=== PATIENT | female | born 1985 | race Caucasian/White ===

== ENCOUNTER 2025-01-16 13:34 | Observation (INO) ==
[2025-01-16] MEDS: SODIUM CHLORIDE 0.9% 1,000 ML IV STA (13:56)
--- NOTE | 2025-01-16 14:04 | Emergency Department Note ---
Impression & Plan Vertigo Admission ED Provider Note HPI: History obtained from patient. The patient is a 39-year-old female with multiple chronic issues including mastoid disorder, chronic vertigo, TMJ syndrome, migraine headaches, presents emergency department with a chief complaint of right-sided headache and dizziness. Patient states that her symptoms acutely worsen when she lies flat and she has had trouble lying flat for about the past 2 years. Patient states she actually had an MRI of the cervical spine scheduled for today but she was unable to go to the appointment as an outpatient because she was feeling so sick when she laid flat. Patient states that she is on steroids, meclizine, and Versed for vertigo without relief of her symptoms. Patient states she has never had symptoms quite this severe in the past. She describes her discomfort on the right side of her head as a "pressure" and states it is not so much of a pain. Patient states she gets most of her care through [facility] however today when she was mentioning her symptoms to family they brought her to [facility] to be evaluated. Patient denies any recent fever, denies any vomiting, on arrival here to the ED the patient is very anxious and tearful in appearance, she is otherwise hemodynamically stable on arrival. ROS: - Per HPI Differential Diagnosis: Vertigo, migraine complex, anxiety attack, intracranial mass/tumor, intracranial hemorrhage, stroke, demyelinating disease, amongst other potential pathologies. *Outpatient medications and allergy history reviewed. PE: General: Alert, anxious and tearful HEENT: Normocephalic, trachea midline Eyes: Extraocular eye movement is intact, no scleral erythema Pulmonary: Clear to auscultation bilaterally, no wheezing Cardio: Regular rate and rhythm GI: Abdomen is soft to palpation : No suprapubic tenderness MSK: No evidence of trauma or malformation of the extremities, no edema Skin: No evidence of rash Neuro: Alert, no focal deficits, no ataxia on [id number] testing, patient has symmetrical facial movements Psychiatric: Anxious appearing, overall cooperative with history and exam INDEPENDENT INTERPRETATIONS: school lunch monitor: (As interpreted by myself): - An order was placed for continuous cardiac monitoring - Patient was noted to be in sinus rhythm with a rate of 85 EKG: (As interpreted by myself): Rate: 86 Rhythm: Normal sinus rhythm Intervals: Within normal limits ST changes: No ST elevation Time: 1350 Chest x-ray: (As interpreted by myself): No acute disease Interventions provided in ED: - IV Versed, meclizine, IV Tylenol, IV Zofran, IV fluid bolus Medical Decision Making: IV was established and lab work obtained, patient was placed on potline monitor. Lab work shows a leukocytosis of 23.32, hemoglobin is stable at 11.2, platelet count is elevated at 588, D-dimer was obtained that is elevated at 630, CMP does not show any evidence of any critical findings. Mild hypokalemia at 3.0 which was ordered for oral repletion. Troponin is negative, there is no transaminitis, bilirubin is normal, magnesium is normal, procalcitonin is low suggesting against systemic bacterial illness. Urinalysis shows some hematuria without evidence of any obvious infection. CT imaging of the head and neck with angiography were obtained and there is no evidence of any acute intracranial hemorrhage, mass, or stroke. CT angiography of the chest was also obtained given the patient's elevated D-dimer as she also mention several presyncopal events, this does not show any evidence of PE. On my reassessment the patient states despite receiving multiple medications here in the ED she remains symptomatic. She is very anxious and tearful and states she does not feel well for discharge. She states that she can only take several steps before feeling too dizzy and lightheaded to ambulate further. Patient states that previously she has been worked up for similar symptoms in the past at [facility] and was told she had "crystals in the inner ear". I suspect that given her unremarkable imaging today her symptoms are likely vertigo. Her significant leukocytosis is likely related to her outpatient steroid use as she states she is on day 6 of a steroid taper of prednisone. She has not had any recent fever and her procalcitonin is low, I have low suspicion for an acute infection causing meningitis or encephalitis. Given the patient's intractable symptoms, I think would be reasonable to admit her for further symptomatic management, family at the bedside requests admission as well. Case was discussed with the on-call hospitalist, Dr. Van, the patient was admitted to the hospitalist service for further management of intractable vertigo symptoms nonspecific head pressure. Consultants/Discussions held with other healthcare providers: -Hospitalist, Dr. Van Disposition discussion held by myself with: -Patient and patient's stepdaughter at the bedside Diagnosis: 1. Nonspecific head discomfort/pressure, acute on chronic 2. Vertigo symptoms, acute on chronic, intractable 3. Leukocytosis in the setting of outpatient steroid use, acute 4. Hypokalemia, acute Disposition: Admission Carmelo Laws DO Emergency Medicine Past Med/Surg History Problem List (Updated 01/16/25 @ 20:33 by Carmelo Laws DO) Vertigo (Acute) Mastoid disorder Decreased hearing Sensation of fullness in right ear Right shoulder pain Right arm weakness Cervical dystonia Cervical facet joint syndrome Cervicogenic headache Headache Cervical radiculopathy Cervicalgia Myofascial neck pain Migraine Vertigo Surgical History H/O sinus surgery H/O section Social History Smoking Status: Former smoker Hx Alcohol Use: No Hx Substance Use: No Preferred Language: Mongolian Visual Impairment: No Limitations Hearing Ability: Normal Beliefs That Will Affect Care: None marital status: Single Current Living Situation: Family Current Living Situation Comment: lives with her children current occupational status: employed current occupation: Cost Specialist/loan assistant Feels Safe at Home: Yes Allergies Allergies Allergy/AdvReac Type Severity Reaction Status Date / Time No Known Drug Allergies Allergy Unknown Verified 01/16/25 17:42 codeine AdvReac Severe Vomiting Unverified 01/16/25 17:42 morphine AdvReac Severe Vomiting Unverified 01/16/25 17:42 Home Meds Home Medications Medication Instructions Recorded Confirmed acetaminophen 500 mg tablet 500 mg PO Q6H PRN Pain 01/16/25 01/16/25 diazepam 2 mg tablet 2 mg PO DAILY 01/16/25 01/16/25 ibuprofen 200 mg tablet (Advil) 200 mg PO Q6H PRN Pain 01/16/25 01/16/25 prednisone 20 mg tablet See Rx Instructions .Route .COMPLEX 01/16/25 01/16/25 Results & Data (ED) Vital Signs Vital Signs - 24 hr 01/16/25 13:34 01/16/25 13:34 01/16/25 13:37 Temperature 36.7 C Temperature Source Temporal Artery Scan Pulse Rate 105 H Pulse Rate [Right Brachial] 90 Pulse Rhythm [Right Brachial] Pulse Strength [Right Brachial] Respiratory Rate 16 20 Respiratory Effort / Characteristics Non-Labored Non-Labored Spontaneous Respiratory Depth Normal Normal Respiratory Pattern Regular Blood Pressure 149/74 H Blood Pressure [Right Arm] 149/84 H Blood Pressure Mean 99 Blood Pressure Mean [Right Arm] 105 Blood Pressure Position [Right Arm] Lying Pulse Oximetry 98 95 99 Oxygen Delivery Method Room Air Room Air Room Air Sepsis New/Unexplained Change in Mental Status N/A Sepsis Action Taken by Nursing No Action Required 01/16/25 14:10 01/16/25 15:34 01/16/25 17:00 Temperature Temperature Source Pulse Rate 93 H Pulse Rate [Right Brachial] 90 77 Pulse Rhythm [Right Brachial] Regular Regular Pulse Strength [Right Brachial] Normal Normal Respiratory Rate 16 16 Respiratory Effort / Characteristics Non-Labored Non-Labored Respiratory Depth Normal Normal Respiratory Pattern Regular Regular Blood Pressure Blood Pressure [Right Arm] 141/75 H 162/89 H Blood Pressure Mean Blood Pressure Mean [Right Arm] 97 113 Blood Pressure Position [Right Arm] Lying Lying Pulse Oximetry 99 94 Oxygen Delivery Method Room Air Room Air Sepsis New/Unexplained Change in Mental Status Sepsis Action Taken by Nursing 01/16/25 18:13 01/16/25 19:15 01/16/25 20:00 Temperature Temperature Source Pulse Rate 79 Pulse Rate [Right Brachial] 80 84 Pulse Rhythm [Right Brachial] Pulse Strength [Right Brachial] Respiratory Rate 20 16 Respiratory Effort / Characteristics Non-Labored Spontaneous Non-Labored Spontaneous Respiratory Depth Respiratory Pattern Regular Regular Blood Pressure Blood Pressure [Right Arm] 165/78 H 135/86 Blood Pressure Mean Blood Pressure Mean [Right Arm] 107 102 Blood Pressure Position [Right Arm] Lying Lying Pulse Oximetry 98 96 Oxygen Delivery Method Room Air Room Air Sepsis New/Unexplained Change in Mental Status Sepsis Action Taken by Nursing Laboratory Data 01/16/25 13:50 01/16/25 13:50 Lab Results 01/16/25 01/16/25 01/16/25 Range/Units 13:50 14:56 19:15 WBC 23.32 H (4.8-10.8) K/ul RBC 5.95 H (4.20-5.40) M/uL Hgb 11.2 L (12.0-16.0) g/dl Hct 39.2 (37.0-47.0) % MCV 65.9 L (80.0-100.0) fL MCH 18.8 L (25.0-34.0) pg MCHC 28.6 L (32.0-36.0) g/dL RDW Std Deviation 43.4 (36.4-46.3) fL RDW Coeff of Sarthak 20.2 H (11.5-14.5) % Plt Count 588 H (130-400) K/uL MPV 9.1 L (9.4-12.4) fL Immature Gran % (Auto) 0.6 % Neut % (Auto) 73.4 % Lymph % (Auto) 19.7 % [place] % (Auto) 6.0 % Eos % (Auto) 0.0 % Baso % (Auto) 0.3 % Neut # (Auto) 17.09 H (1.40-6.50) K/uL Lymph # (Auto) 4.60 H (1.20-3.40) K/uL [place] # (Auto) 1.40 H (0.11-0.59) K/uL Eos # (Auto) 0.00 (0.00-0.50) K/uL Baso # (Auto) 0.08 (0.00-0.20) K/uL Immature Gran # (Auto) 0.15 (0.01-0.20) K/uL Polychromasia 1+ Anisocytosis Present Microcytosis Present Spherocytes 1+ PT 10.7 (9.0-12.0) Seconds INR 1.0 (0.9-1.1) D-Dimer 630 H* (0-500) ug/L FEU Sodium 137 (136-145) mmol/L Potassium 3.0 L (3.5-5.1) mmol/L Chloride 100 (98-107) mmol/L Carbon Dioxide 26 (21-32) mmol/L Anion Gap 11 (3-11) BUN 15 (6-23) mg/dl Creatinine 0.76 (0.6-1.2) mg/dl Est Cr Clr Drug Dosing 124.1 ml/min eGFR 100.89 BUN/Creatinine Ratio 19.7 (10-20) Glucose 123 H (70-99(Fasting)) mg/dl Calcium 9.1 (8.6-10.3) mg/dl Magnesium 2.2 (1.7-2.4) mg/dl Total Bilirubin 0.5 (0.2-1.0) mg/dl AST 15 (13-39) U/L ALT 20 (7-52) U/L Alkaline Phosphatase 67 (34-104) U/L Troponin I High Sens 4.5 5.6 (0-14) pg/ml Total Protein 7.9 (6.0-8.3) gm/dl Albumin 4.3 (3.4-5.0) gm/dl Globulin 3.6 (2.5-4.0) gm/dl Albumin/Globulin Ratio 1.2 (0.9-2) Lipase 41 (11-82) U/L Procalcitonin < 0.02 (0-0.5) ng/ml Urine Color Red Urine Appearance Clear (Clear) Urine pH 6.5 (4.5-7.5) Ur Specific [place] > 1.045 H (1.000-1.030) Urine Protein 1+ H (Negative) Urine Glucose (UA) Negative (Negative) Urine Ketones Negative (Negative) Urine Blood 3+ H (Negative) Urine Nitrite Negative (Negative) Urine Bilirubin Negative (Negative) Urine Urobilinogen Negative (Negative) Ur Leukocyte Esterase Trace H (Negative) Urine WBC (Auto) 0-5 (0-5) /hpf Urine RBC (Auto) >20 H (0-2) /hpf U Hyaline Cast (Auto) 0-2 (0-2) /lpf U Epithel Cells (Auto) 0-2 (0-2) /hpf Urine Bacteria (Auto) None Seen (None Seen) Urine Comment Administered Medications Discontinued Medications Diazepam (Diazepam 5 Mg/Ml 10ml Vial) 5 mg IV NOW STA Stop: 01/16/25 14:06 Last Admin: 01/16/25 14:10 Dose: 2 mg Documented By: JAILENE Sodium Chloride (Nss) 1,000 mls @ 999 mls/hr IV .Q1H1M STA Stop: 01/16/25 14:42 Last Infusion: 01/16/25 15:24 Dose: Infused Documented By: Admin: 01/16/25 13:56 Dose: 999 mls/hr Documented By: JAILENE Sodium Chloride (Nss) 1,000 mls @ 999 mls/hr IV .Q1H1M ONE Stop: 01/16/25 17:03 Last Infusion: 01/16/25 17:30 Dose: Infused Documented By: Admin: 01/16/25 16:14 Dose: 999 mls/hr Documented By: JAILENE Acetaminophen (Ofirmev) 1,000 mg in 100 mls @ 400 mls/hr IV NOW STA Stop: 01/16/25 16:25 Last Infusion: 01/16/25 16:30 Dose: Infused Documented By: Admin: 01/16/25 16:14 Dose: 400 mls/hr Documented By: JAILENE Ioversol (Optiray 320 125ml) 115 ml IV ONCE ONE Stop: 01/16/25 14:37 Last Admin: 01/16/25 14:36 Dose: 115 ml Documented By: TITO Ioversol (Optiray 320 125ml) 120 ml IV ONCE ONE Stop: 01/16/25 16:48 Last Admin: 01/16/25 16:47 Dose: 120 ml Documented By: NEIDA Meclizine HCl (Meclizine Hcl 25 Mg Tab) 25 mg PO NOW STA Stop: 01/16/25 16:03 Last Admin: 01/16/25 16:14 Dose: 25 mg Documented By: JAILENE Midazolam HCl (Midazolam Hcl 5 Mg/Ml 2ml Vial) 3 mg IV NOW STA Stop: 01/16/25 14:00 Last Admin: 01/16/25 14:13 Dose: Not Given Documented By: JAILENE Ondansetron HCl (Ondansetron Inj 2 Mg/Ml 2 Ml Vial) 4 mg IV NOW STA Stop: 01/16/25 16:03 Last Admin: 01/16/25 16:14 Dose: 4 mg Documented By: JAILENE Potassium Chloride (Potassium Chloride Crtab 20 Meq Tabcr) 40 meq PO NOW STA Stop: 01/16/25 18:02 Last Admin: 01/16/25 19:07 Dose: 40 meq Documented By: JAILENE Imaging Data Radiologist's Impression: Chest X-Ray 01/16/25 13:42 XR chest 1V portable CLINICAL HISTORY: palpitations COMPARISON STUDY: None FINDINGS: Heart size and pulmonary vasculature are normal. No consolidation or pleural effusion. No pneumothorax. IMPRESSION: No acute findings. ACT 112: Negative or not required by law. Electronically signed by: Broderick Clark M.D. 01/16/2025 2:06 PM Head CTA 01/16/25 14:00 CT angio head wo/w CLINICAL HISTORY: [place], R sided COMPARISON STUDY: None FINDINGS: Noncontrast head CT: No intracranial hemorrhage seen. No mass effect, midline shift, or hydrocephalus. No skull fracture seen. There is mucosal thickening inferiorly in the maxillary sinuses. Visualized paranasal sinuses and mastoid air cells are otherwise clear. CTA: There is mild artifact distally at the left internal carotid artery. Distal internal carotid and vertebral arteries show no significant narrowing or occlusion. Basilar artery is patent. Anterior, middle, and posterior cerebral arteries are patent bilaterally. Cerebral venous sinuses opacify normally. No intracranial aneurysm seen. IMPRESSION: 1. No acute findings. 2. No arterial narrowing or occlusion seen at the brain. ACT 112: Negative or not required by law. Electronically signed by: Broderick Clark M.D. 01/16/2025 2:55 PM Neck CTA 01/16/25 14:00 CT angio neck with con CLINICAL HISTORY: 39 years-old Female with R sided [place], dizzy. Acute headache with dizziness COMPARISON STUDY: CTA head of same day TECHNIQUE: Following the IV administration of 115 mL of Optiray, CT angiogram of the neck was performed from the aortic arch to the skull base. Images are reviewed in the axial, sagittal, and coronal planes. 3-D MIPS images are created and assessed. IV contrast was administered without complication. All measurements were calculated based on NASCET criteria. A dose lowering technique was utilized adhering to the principles of ALARA. FINDINGS: Three-vessel morphology of the thoracic aortic arch. The common and internal carotid arteries are widely patent. Vertebral arteries are codominant and widely patent. No aneurysm, dissection, high-grade stenosis or arterial occlusion. CTA head dictated separately. Polypoid mucosal thickening of the maxillary sinuses. Lung apices are clear. No acute fracture. IMPRESSION:Unremarkable CTA of the neck. ACT 112: Negative or not required by law. The above report was generated using voice recognition software. It may contain grammatical, syntax or spelling errors. Electronically signed by: Walter Benavides M.D. 01/16/2025 3:01 PM Chest CTA 01/16/25 16:03 Clinical history: Rule out pulmonary embolism Technique: Axial computed tomography images were obtained of the chest after the administration of intravenous contrast according to the CT angiogram protocol Findings: There is no definite sign of pulmonary embolism. There is mild subsegmental atelectasis in both lung bases. The lungs otherwise appear clear without infiltrate or mass. There is no pleural effusion or pneumothorax. There is no sign of pulmonary fibrosis or other diffuse interstitial process. No endobronchial lesion is seen There is no mediastinal, hilar, or axillary adenopathy. The thoracic aorta appears unremarkable with no sign of aneurysm or dissection. There is no pericardial effusion The visualized upper abdomen appears unremarkable. No fracture is seen. No focal osseous lesion is evident Impression: 1. No definite sign of pulmonary embolism 2. Mild bilateral lung base atelectasis Electronically signed by Lee Ceron 01-16-2025 5:03 PM Discharge Plan Visit Data Chief Complaint: Syncope (Near Syncope) Stated Complaint: VERTIGO, HEART POUNDING, NEAR SYNCOPE ED Provider: Carmelo Laws Discharge Problem: Vertigo Patient Disposition: Admitted As Inpatient Condition: Fair Forms Stand Alone Forms: [facility] Prescriptions Prescriptions: No Action prednisone 20 mg tablet See Rx Instructions .ROUTE .COMPLEX Rx Instructions: Start Date 01/09/25: Take 80mg once daily x 3 days; 60mg x 3 days; 40mg x 3 days; then 20mg x 3 days and stop acetaminophen [Tylenol Ex Str Rapid Release] 500 mg Tablet 500 mg PO Q6H PRN (Reason: Pain) diazepam 2 mg tablet 2 mg PO DAILY ibuprofen [Advil] 200 mg Tablet 200 mg PO Q6H PRN (Reason: Pain) Referrals Referrals: Cary Olson PA-C [Outside Practitioners] -
--- NOTE | 2025-01-16 14:07 | XRay Report ---
XR chest 1V portable CLINICAL HISTORY: palpitations COMPARISON STUDY: None FINDINGS: Heart size and pulmonary vasculature are normal. No consolidation or pleural effusion. No p neumothorax. IMPRESSION: No acute findings. ACT 112: Negative or not required by law. Electronically signed by: Broderick Clark M.D. 01/16/2025 2:06 PM
[2025-01-16] MEDS: diazePAM 5 MG/ML 10ML VIAL IV STA (14:10)
[2025-01-16 14:12] LABS: Hematocrit (blood only) 39.2 % (37.0-47.0); Hemoglobin 11.2 g/dl (12.0-16.0); Mean Corpuscular Hemoglobin 18.8 pg (25.0-34.0); Mean Corpuscular Hgb Conc 28.6 g/dL (32.0-36.0); Mean Corpuscular Volume 65.9 fL (80.0-100.0); RDW Coefficient of Variation 20.2 % (11.5-14.5); RDW Standard Deviation 43.4 fL (36.4-46.3); Red Blood Count 5.95 M/uL (4.20-5.40); White Blood Count 23.32 K/ul (4.8-10.8)
[2025-01-16] MEDS: MIDAZOLAM HCL 5 MG/ML 2ML VIAL IV STA (14:13)
[2025-01-16 14:26] LABS: Albumin Globulin Ratio 1.2 (0.9-2); BUN Creatinine Ratio 19.7 (10-20); Bilirubin,Total 0.5 mg/dl (0.2-1.0); Calcium 9.1 mg/dl (8.6-10.3); Creatinine Clr Calc Pharmacy 124.1 ml/min; Globulin 3.6 gm/dl (2.5-4.0); Total Protein 7.9 gm/dl (6.0-8.3)
[2025-01-16 14:32] LABS: Troponin I High Sensitivity 4.5 pg/ml (0-14)
[2025-01-16 14:35] LABS: Prothrombin Time 10.7 Seconds (9.0-12.0)
[2025-01-16 14:36] LABS: Mean Platelet Volume 9.1 fL (9.4-12.4); Platelet Count 588 K/uL (130-400)
[2025-01-16] MEDS: OPTIRAY 320 125ml IV ONE ×2 (14:36→16:47)
[2025-01-16 14:40] LABS: D Dimer 630 ug/L FEU (0-500)
[2025-01-16 14:45] LABS: Anisocytosis Present; Basophils # (auto) 0.08 K/uL (0.00-0.20); Basophils % (auto) 0.3 %; Immature Granulocytes # (auto) 0.15 K/uL (0.01-0.20); Immature Granulocytes % (auto) 0.6 %; Lymphocytes % (auto) 19.7 %; Microcytosis Present; Neutrophils # (auto) 17.09 K/uL (1.40-6.50); Neutrophils % (auto) 73.4 %; Polychromasia 1+; Spherocytes 1+
--- NOTE | 2025-01-16 14:57 | CT Scan Report ---
CT angio head wo/w CLINICAL HISTORY: [place], R sided COMPARISON STUDY: None FINDINGS: Noncontrast head CT: No intracranial hemorrhage seen. No mass effect, midline shift, or hydrocephalus . No skull fracture seen. There is mucosal thickening inferiorly in the maxillary sinuses. Visualized paranasal sinuses and mastoid air cells are otherwise clear. CTA: There is mild artifact distally at the left internal carotid artery. Distal internal carotid and vertebral arteries show no significant narrowing or occlusion. Basilar artery is patent. Anterior, m iddle, and posterior cerebral arteries are patent bilaterally. Cerebral venous sinuses opacify normal ly. No intracranial aneurysm seen. IMPRESSION: 1. No acute findings. 2. No arterial narrowing or occlusion seen at the brain. ACT 112: Negative or not required by law. Electronically signed by: Broderick Clark M.D. 01/16/2025 2:55 PM
--- NOTE | 2025-01-16 15:03 | CT Scan Report ---
CT angio neck with con CLINICAL HISTORY: 39 years-old Female with R sided [place], dizzy. Acute headache with dizziness COMPARISON STUDY: CTA head of same day TECHNIQUE: Following the IV administration of 115 mL of Optiray, CT angiogram of the neck was perform ed from the aortic arch to the skull base. Images are reviewed in the axial, sagittal, and coronal pl anes. 3-D MIPS images are created and assessed. IV contrast was administered without complication. Al l measurements were calculated based on NASCET criteria. A dose lowering technique was utilized adhe ring to the principles of ALARA. FINDINGS: Three-vessel morphology of the thoracic aortic arch. The common and internal carotid arteries are wid lashell patent. Vertebral arteries are codominant and widely patent. No aneurysm, dissection, high-grade stenosis or arterial occlusion. CTA head dictated separately. Polypoid mucosal thickening of the maxi llary sinuses. Lung apices are clear. No acute fracture. IMPRESSION:Unremarkable CTA of the neck. ACT 112: Negative or not required by law. The above report was generated using voice recognition software. It may contain grammatical, syntax o r spelling errors. Electronically signed by: Walter Benavides M.D. 01/16/2025 3:01 PM
[2025-01-16] MEDS: ACETAMINOPHEN 1,000 MG/100 ML VIAL IV STA (16:14)
[2025-01-16] MEDS: MECLIZINE HCL 25 MG TAB PO STA (16:14)
[2025-01-16] MEDS: ONDANSETRON INJ 2 MG/ML 2 ML VIAL IV STA (16:14)
[2025-01-16] MEDS: SODIUM CHLORIDE 0.9% 1,000 ML IV ONE (16:14)
--- NOTE | 2025-01-16 17:03 | CT Scan Report ---
Clinical history: Rule out pulmonary embolism Technique: Axial computed tomography images were obtained of the chest after the administration of intravenous contrast according to the CT angiogram protocol Findings: There is no definite sign of pulmonary embolism. There is mild subsegmental atelectasis in both lung bases. The lungs otherwise appear clear without infiltrate or mass. There is no pleural effusion or pneumothorax. There is no sign of pulmonary fibrosis or other diffuse interstitial process. No endobronchial lesion is seen There is no mediastinal, hilar, or axillary adenopathy. The thoracic aorta appears unremarkable with no sign of aneurysm or dissection. There is no pericardial effusion The visualized upper abdomen appears unremarkable. No fracture is seen. No focal osseous lesion is evident Impression: 1. No definite sign of pulmonary embolism 2. Mild bilateral lung base atelectasis Electronically signed by Lee Ceron 01-16-2025 5:03 PM
[2025-01-16] MEDS: POTASSIUM CHLORIDE CRTAB 20 MEQ TABCR PO STA (19:07)
[2025-01-16 19:23] LABS: Magnesium 2.2 mg/dl (1.7-2.4)
[2025-01-16 19:25] LABS: Appearance Urine Clear (Clear); Bacteria Urine Automated None Seen (None Seen); Bilirubin Urine Negative (Negative); Blood Urine 3+ (Negative); Cast Urine Automated 0-2 /lpf (0-2); Color Urine Red; Epithelial Cell Urine Auto 0-2 /hpf (0-2); Glucose Urine UA Negative (Negative); Ketones Urine Negative (Negative); Leukocyte Esterase Urine Trace (Negative); Nitrite Urine Negative (Negative); Protein Urine 1+ (Negative); RBC Urine Automated >20 /hpf (0-2); Specific Gravity Urine > 1.045 (1.000-1.030); Urobilinogen Urine Negative (Negative); WBC Urine Automated 0-5 /hpf (0-5); pH Urine 6.5 (4.5-7.5)
--- NOTE | 2025-01-16 19:44 | History & Physical Report ---
Date of Service January 16, 2025 Assessment & Plan (1) Vertigo: (2) Myofascial neck pain: (3) Anemia: Plan 39yo female with longstanding history of cervicalgia, right sided TMJ presenting with 2.5 weeks of progressive vertigo, fullness in neck, head and ears. No recent illness. Patient's exam findings are consistent with longstanding myofascial dysfunction - area is markedly tender but feels firm on exam, patient with very little cervical mobility - longstanding issue per note received from family. #Vertigo - longstanding history, worse over the last 2.5 weeks -Admit to medical -Meclizine 12.5mg po TID scheduled -Valium 2mg po BID scheduled -PT/OT evaluations appreciated -Patient would likely benefit from close followup with a DO physician that is comfortable in performing cervical and cranial techniques #Congestion -Pseudophed 30mg po q 6 hours PRN -Nasal saline QID PRN -Flonase daily #Neck pressure/pain -Valium 2mg po BID scheduled -Heat to the neck -PT/OT -Will complete patient's Prednisone taper - 40mg po x 1 dose now then 20mg po x 3 doses -Protonix 40mg po daily -Patient should be encouraged to perform gentle stretching as tolerated. As above, would likely benefit from ongoing cervical/cranial OMT #Microcytic anemia - Hgb=11.2, MCV=65.9. Possibly secondary to heavy menstruation -Check iron studies -Patient may benefit from IV iron infusions prior to DC -She should keep her hematology followup appointment as scheduled History of Present Illness Chief Complaint: head pressure, vertigo Primary Care Provider: Margie Sandoval Candi Braswell is a 39-year-old female with longstanding history of cervicalgia, right-sided TMJ, persistent vertigo presenting with 2-1/2 weeks of progressive symptoms. She is mainly complaining of severe, extreme pressure in her neck and head as well as pressures in her ears (right > left), dizziness. She feels like she is going to faint when she changes position. She reports frequent right ear infections as well as feeling of aural fullness predominantly in her right ear and chronic right ear pain. also with chronic sinus congestion, dizziness and vertigo symptoms specifically with positional change. She denies hearing loss, tinnitus, dental pain No fever, chills, trauma or neck strain. Patient takes meclizine and Valium at home but states these medications make her sleepy and do not relieve her symptoms. Recently started on a prednisone taper as well of which she has 4 days left. Patient was previously diagnosed with Mnire's disease and was treated briefly with a diuretic but reports this did not help. She has also been on sertraline and Prozac in the past as well as antibiotics and reports these have not helped her symptoms either. She does get Botox injections for her TMJ which she does experience some relief with. She also follows with chiropractic medicine and reports relief with these methods as well. She is scheduled to see vestibular therapy in the future. Patient's family did send in a letter with additional information. To summarize: -Patient is unable to care for herself at home, can't lay flat due to ongoing pain and pressure in her head, neck and jaw. Has been unable to lay down or turn her neck for 2 years. Sleeps in a recliner -Missed her sinus CT scan scheduled for Monday -Has an LP scheduled for Monday, has never had an LP before -Newly found to be anemic with low iron - was prescribed PO supplementation but didn't work. Scheduled to see Hematology in January -Cannot swallow food or pills without it getting stuck In regards to her anemia. This is a fairly new diagnosis. She does report heavy periods sometimes getting 2 periods per month. She was trialed on oral iron replacement but reports this did not work. She is scheduled to see hematology in January. In the ER, patient afebrile, hemodynamically stable In significant discomfort Allergies Allergy/AdvReac Type Severity Reaction Status Date / Time No Known Drug Allergies Allergy Unknown Verified 01/16/25 17:42 codeine AdvReac Severe Vomiting Unverified 01/16/25 17:42 morphine AdvReac Severe Vomiting Unverified 01/16/25 17:42 Home Medications Medication Instructions Recorded Confirmed Type acetaminophen 500 mg tablet 500 mg PO Q6H PRN Pain 01/16/25 01/16/25 History diazepam 2 mg tablet 2 mg PO DAILY 01/16/25 01/16/25 History ibuprofen 200 mg tablet (Advil) 200 mg PO Q6H PRN Pain 01/16/25 01/16/25 History prednisone 20 mg tablet See Rx Instructions .Route .COMPLEX 01/16/25 01/16/25 History Past Med/Surg History Problem List (Updated 01/16/25 @ 23:04 by Ailyn Iglesias DO) Anemia Vertigo (Acute) Mastoid disorder Decreased hearing Sensation of fullness in right ear Right shoulder pain Right arm weakness Cervical dystonia Cervical facet joint syndrome Cervicogenic headache Headache Cervical radiculopathy Cervicalgia Myofascial neck pain Migraine Vertigo Surgical History H/O sinus surgery H/O section Social History Smoking Status: Never smoker Hx Alcohol Use: No Hx Substance Use: No Preferred Language: Mohawk Communication Ability: Effective Visual Impairment: No Limitations Hearing Ability: Normal [employer]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 Beliefs That Will Affect Care: None marital status: Single Current Living Situation: Family Current Living Situation Comment: lives with her children current occupational status: employed 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 Feels Safe at Home: Yes Assistive Devices: Contacts Review of Systems Review of Systems: All systems reviewed & are unremarkable except as noted in HPI & below Physical Exam Physical Exam: General: patient uncomfortable, sitting supine, unable to turn head or neck Skin: warm, dry, intact, no rashes or lesions HEENT: NC/AT, PERRL, EOMI, no nystagmus, anicteric sclera, conjunctiva without injection, external ear normal to inspection and nontender, TM with no evidence of infection, some retraction of right TM, no fluid present, nares patent, moist mucus membranes, dentition intact, no oropharyngeal lesions, neck supple, trachea midline, no LAD, no thyromegaly, no JVD Fullness and tenderness present with palpation of bitemporal soft tissue, anterior neck bilaterally, suboccipital region and paraspinal musculature. Musculature feels somewhat firm and fixed, very tender Heart: +S1/S2, regular, no m/r/g Lungs: equal air entry bilaterally, no rales/rhonchi/wheezes Abd: +BS, soft, NT/ND, no masses/organomegaly/ascites Ext: warm, 2+ pulses in UE/LE bilaterally, no clubbing/cyanosis or edema Neuro: nonfocal, patient AA&O x 4, speech intact, no facial droop, moving all extremities on command with equal strength 5/5 Results & Data Results & Data Vital Signs (Past 12 Hours) Vital Signs Temp Pulse Pulse Resp BP BP Pulse Ox 01/16/25 19:15 80 20 165/78 H 98 01/16/25 18:13 79 01/16/25 17:00 77 16 162/89 H 94 01/16/25 15:34 90 16 141/75 H 99 01/16/25 14:10 93 H 01/16/25 13:37 36.7 C 105 H 20 149/74 H 99 01/16/25 13:34 95 01/16/25 13:34 90 16 149/84 H 98 O2 Del Method 01/16/25 19:15 Room Air 01/16/25 18:13 01/16/25 17:00 Room Air 01/16/25 15:34 Room Air 01/16/25 14:10 01/16/25 13:37 Room Air 01/16/25 13:34 Room Air 01/16/25 13:34 Room Air Laboratory Results Laboratory Results WBC 23.32 K/ul (4.8-10.8) H 01/16/25 13:50 RBC 5.95 M/uL (4.20-5.40) H 01/16/25 13:50 Hgb 11.2 g/dl (12.0-16.0) L 01/16/25 13:50 Hct 39.2 % (37.0-47.0) 01/16/25 13:50 MCV 65.9 fL (80.0-100.0) L 01/16/25 13:50 MCH 18.8 pg (25.0-34.0) L 01/16/25 13:50 MCHC 28.6 g/dL (32.0-36.0) L 01/16/25 13:50 RDW Std Deviation 43.4 fL (36.4-46.3) 01/16/25 13:50 RDW Coeff of Sarthak 20.2 % (11.5-14.5) H 01/16/25 13:50 Plt Count 588 K/uL (130-400) H 01/16/25 13:50 MPV 9.1 fL (9.4-12.4) L 01/16/25 13:50 Immature Gran % (Auto) 0.6 % 01/16/25 13:50 Neut % (Auto) 73.4 % 01/16/25 13:50 Lymph % (Auto) 19.7 % 01/16/25 13:50 [place] % (Auto) 6.0 % 01/16/25 13:50 Eos % (Auto) 0.0 % 01/16/25 13:50 Baso % (Auto) 0.3 % 01/16/25 13:50 Neut # (Auto) 17.09 K/uL (1.40-6.50) H 01/16/25 13:50 Lymph # (Auto) 4.60 K/uL (1.20-3.40) H 01/16/25 13:50 [place] # (Auto) 1.40 K/uL (0.11-0.59) H 01/16/25 13:50 Eos # (Auto) 0.00 K/uL (0.00-0.50) 01/16/25 13:50 Baso # (Auto) 0.08 K/uL (0.00-0.20) 01/16/25 13:50 Immature Gran # (Auto) 0.15 K/uL (0.01-0.20) 01/16/25 13:50 Polychromasia 1+ 01/16/25 13:50 Anisocytosis Present 01/16/25 13:50 Microcytosis Present 01/16/25 13:50 Spherocytes 1+ 01/16/25 13:50 PT 10.7 Seconds (9.0-12.0) 01/16/25 13:50 INR 1.0 (0.9-1.1) 01/16/25 13:50 D-Dimer 630 ug/L FEU (0-500) H* 01/16/25 13:50 Sodium 137 mmol/L (136-145) 01/16/25 13:50 Potassium 3.0 mmol/L (3.5-5.1) L 01/16/25 13:50 Chloride 100 mmol/L (98-107) 01/16/25 13:50 Carbon Dioxide 26 mmol/L (21-32) 01/16/25 13:50 Anion Gap 11 (3-11) 01/16/25 13:50 BUN 15 mg/dl (6-23) 01/16/25 13:50 Creatinine 0.76 mg/dl (0.6-1.2) 01/16/25 13:50 Est Cr Clr Drug Dosing 124.1 ml/min 01/16/25 13:50 eGFR 100.89 01/16/25 13:50 BUN/Creatinine Ratio 19.7 (10-20) 01/16/25 13:50 Glucose 123 mg/dl (70-99(Fasting)) H 01/16/25 13:50 POC Glucose 83 mg/dl (70-99) 01/16/25 22:37 Calcium 9.1 mg/dl (8.6-10.3) 01/16/25 13:50 Magnesium 2.2 mg/dl (1.7-2.4) 01/16/25 13:50 Iron 21 mcg/dl (35-150) L 01/16/25 13:50 TIBC 536 mcg/dl (250-450) H 01/16/25 13:50 Transferrin 383 mg/dl (200-360) H 01/16/25 13:50 Transferrin % Sat 4 % (15-50) L 01/16/25 13:50 Ferritin 7.1 ng/ml (8-388) L 01/16/25 13:50 Total Bilirubin 0.5 mg/dl (0.2-1.0) 01/16/25 13:50 AST 15 U/L (13-39) 01/16/25 13:50 ALT 20 U/L (7-52) 01/16/25 13:50 Alkaline Phosphatase 67 U/L (34-104) 01/16/25 13:50 Troponin I High Sens 5.6 pg/ml (0-14) 01/16/25 14:56 Total Protein 7.9 gm/dl (6.0-8.3) 01/16/25 13:50 Albumin 4.3 gm/dl (3.4-5.0) 01/16/25 13:50 Globulin 3.6 gm/dl (2.5-4.0) 01/16/25 13:50 Albumin/Globulin Ratio 1.2 (0.9-2) 01/16/25 13:50 Lipase 41 U/L (11-82) 01/16/25 13:50 Procalcitonin < 0.02 ng/ml (0-0.5) 01/16/25 13:50 Urine Color Red 01/16/25 19:15 Urine Appearance Clear (Clear) 01/16/25 19:15 Urine pH 6.5 (4.5-7.5) 01/16/25 19:15 Ur Specific Addy > 1.045 (1.000-1.030) H 01/16/25 19:15 Urine Protein 1+ (Negative) H 01/16/25 19:15 Urine Glucose (UA) Negative (Negative) 01/16/25 19:15 Urine Ketones Negative (Negative) 01/16/25 19:15 Urine Blood 3+ (Negative) H 01/16/25 19:15 Urine Nitrite Negative (Negative) 01/16/25 19:15 Urine Bilirubin Negative (Negative) 01/16/25 19:15 Urine Urobilinogen Negative (Negative) 01/16/25 19:15 Ur Leukocyte Esterase Trace (Negative) H 01/16/25 19:15 Urine WBC (Auto) 0-5 /hpf (0-5) 01/16/25 19:15 Urine RBC (Auto) >20 /hpf (0-2) H 01/16/25 19:15 U Hyaline Cast (Auto) 0-2 /lpf (0-2) 01/16/25 19:15 U Epithel Cells (Auto) 0-2 /hpf (0-2) 01/16/25 19:15 Urine Bacteria (Auto) None Seen (None Seen) 01/16/25 19:15 Urine Comment 01/16/25 19:15 Impressions Chest X-Ray 01/16/25 13:42 XR chest 1V portable CLINICAL HISTORY: palpitations COMPARISON STUDY: None FINDINGS: Heart size and pulmonary vasculature are normal. No consolidation or pleural effusion. No pneumothorax. IMPRESSION: No acute findings. ACT 112: Negative or not required by law. Electronically signed by: Broderick Clark M.D. 01/16/2025 2:06 PM Head CTA 01/16/25 14:00 CT angio head wo/w CLINICAL HISTORY: [place], R sided COMPARISON STUDY: None FINDINGS: Noncontrast head CT: No intracranial hemorrhage seen. No mass effect, midline shift, or hydrocephalus. No skull fracture seen. There is mucosal thickening inferiorly in the maxillary sinuses. Visualized paranasal sinuses and mastoid air cells are otherwise clear. CTA: There is mild artifact distally at the left internal carotid artery. Distal internal carotid and vertebral arteries show no significant narrowing or occlusion. Basilar artery is patent. Anterior, middle, and posterior cerebral arteries are patent bilaterally. Cerebral venous sinuses opacify normally. No intracranial aneurysm seen. IMPRESSION: 1. No acute findings. 2. No arterial narrowing or occlusion seen at the brain. ACT 112: Negative or not required by law. Electronically signed by: Broderick Clark M.D. 01/16/2025 2:55 PM Neck CTA 01/16/25 14:00 CT angio neck with con CLINICAL HISTORY: 39 years-old Female with R sided BLACK[place], dizzy. Acute headache with dizziness COMPARISON STUDY: CTA head of same day TECHNIQUE: Following the IV administration of 115 mL of Optiray, CT angiogram of the neck was performed from the aortic arch to the skull base. Images are reviewed in the axial, sagittal, and coronal planes. 3-D MIPS images are created and assessed. IV contrast was administered without complication. All measurements were calculated based on NASCET criteria. A dose lowering technique was utilized adhering to the principles of ALARA. FINDINGS: Three-vessel morphology of the thoracic aortic arch. The common and internal carotid arteries are widely patent. Vertebral arteries are codominant and widely patent. No aneurysm, dissection, high-grade stenosis or arterial occlusion. CTA head dictated separately. Polypoid mucosal thickening of the maxillary sinuses. Lung apices are clear. No acute fracture. IMPRESSION:Unremarkable CTA of the neck. ACT 112: Negative or not required by law. The above report was generated using voice recognition software. It may contain grammatical, syntax or spelling errors. Electronically signed by: Walter Benavides M.D. 01/16/2025 3:01 PM Chest CTA 01/16/25 16:03 Clinical history: Rule out pulmonary embolism Technique: Axial computed tomography images were obtained of the chest after the administration of intravenous contrast according to the CT angiogram protocol Findings: There is no definite sign of pulmonary embolism. There is mild subsegmental atelectasis in both lung bases. The lungs otherwise appear clear without infiltrate or mass. There is no pleural effusion or pneumothorax. There is no sign of pulmonary fibrosis or other diffuse interstitial process. No endobronchial lesion is seen There is no mediastinal, hilar, or axillary adenopathy. The thoracic aorta appears unremarkable with no sign of aneurysm or dissection. There is no pericardial effusion The visualized upper abdomen appears unremarkable. No fracture is seen. No focal osseous lesion is evident Impression: 1. No definite sign of pulmonary embolism 2. Mild bilateral lung base atelectasis Electronically signed by Lee Ceron 01-16-2025 5:03 PM PG Care Time/CCT Total # of Minutes Spent Total Time Spent with Patient: Total time spent is greater than 50% in coordination of care (as documented) at patient's floor/unit and/or counseling patient: Coding Level of Care Code 71688 INT INP/OBS CARE 3/75MIN Diagnoses Vertigo R42 Myofascial neck pain M54.2 Anemia D64.9
[2025-01-16] MEDS ORDERED: SODIUM CHLORIDE 0.65% NA SOLN 45 ML (OCEAN) PRN (21:35)
[2025-01-16] MEDS ORDERED: PSEUDOEPHEDRINE HCL 30 MG TAB PO PRN (21:35)
[2025-01-16] MEDS: MECLIZINE 12.5 MG TAB PO SCH (22:09)
[2025-01-16] MEDS: IBUPROFEN 200 MG TAB PO STA (22:09)
[2025-01-16] MEDS: POTASSIUM CHLORIDE 20 MEQ in LACTATED RINGER'S 1,000 ML IV SCH (22:12)
[2025-01-16] MEDS: diazePAM 2 MG TABLET PO SCH (22:12)
[2025-01-16] MEDS: predniSONE 20 MG TAB PO STA (22:13)
[2025-01-16 22:18] LABS: Ferritin 7.1 ng/ml (8-388)
[2025-01-17] MEDS: ACETAMINOPHEN 325 MG TAB PO PRN (06:01)
[2025-01-17] MEDS: ONDANSETRON INJ 2 MG/ML 2 ML VIAL IV PRN (08:26)
[2025-01-17] MEDS: FLUTICASONE PROPIONATE NA SPR 16 GM BTL SCH (08:38)
[2025-01-17] MEDS: predniSONE 20 MG TAB PO SCH (08:39)
[2025-01-17 08:51] LABS: BUN Creatinine Ratio 19.6 (10-20); Calcium 8.5 mg/dl (8.6-10.3); Creatinine Clr Calc Pharmacy 184.9 ml/min; Potassium 4.1 mmol/L (3.5-5.1)
[2025-01-17] MEDS: PANTOprazole 40 MG TAB PO SCH (09:09)
[2025-01-17 09:19] LABS: Hematocrit (blood only) 33.8 % (37.0-47.0); Hemoglobin 9.8 g/dl (12.0-16.0); Mean Corpuscular Hemoglobin 19.1 pg (25.0-34.0); Mean Corpuscular Volume 65.8 fL (80.0-100.0); Mean Platelet Volume 9.2 fL (9.4-12.4); Platelet Count 496 K/uL (130-400); RDW Coefficient of Variation 18.8 % (11.5-14.5); RDW Standard Deviation 43.4 fL (36.4-46.3); Red Blood Count 5.14 M/uL (4.20-5.40); White Blood Count 12.84 K/ul (4.8-10.8)
[2025-01-17] MEDS: IRON SUCROSE 300 MG in SODIUM CHLORIDE 0.9% 250 ML IV ONE (10:05)
--- NOTE | 2025-01-17 11:02 | Hospitalist Progress Note ---
Date of Service January 17, 2025 Assessment & Plan (1) Vertigo: (2) Myofascial neck pain: (3) Anemia: Plan 39yo female with longstanding history of cervicalgia, right sided TMJ presenting with 2.5 weeks of progressive vertigo, fullness in neck, head and ears. No recent illness. Patient's exam findings are consistent with longstanding myofascial dysfunction - area is markedly tender but feels firm on exam, patient with very little cervical mobility - longstanding issue per note received from family. #Vertigo - longstanding history, worse over the last 2.5 weeks -Admit to medical -Meclizine 12.5mg po TID scheduled--> increase to 25mg TID -Valium 2mg po BID scheduled --> increase to 5mg BID -PT/OT evaluations appreciated --> await input -Patient would likely benefit from close followup with a DO physician that is comfortable in performing cervical and cranial techniques #Congestion -Pseudophed 30mg po q 6 hours PRN -Nasal saline QID PRN -Flonase daily #Neck pressure/pain -Valium 2mg po BID scheduled -Heat to the neck -PT/OT -Will complete patient's Prednisone taper - 40mg po x 1 dose now then 20mg po x 3 doses -Protonix 40mg po daily -Patient should be encouraged to perform gentle stretching as tolerated. As above, would likely benefit from ongoing cervical/cranial OMT #Microcytic anemia - Hgb=11.2, MCV=65.9. Possibly secondary to heavy menstruation -Serum iron 21 and ferritin 7.1, ordered dose of Venofer 300mg IVx1 -She should keep her hematology followup appointment as scheduled #Morbid Obesity -Recommend dietary modifications and exercise to promote healthy weight loss Leukocytosis noted on wbc this AM 2/2 steroid use. No other signs/symptoms concerning for infection. Await PT/OT evals, med changes as above. D/C IVF LR + KCl, potassium 4.1 this AM. Plan to be d/w Dr. Stafford. Admission and Anticipated Discharge Date Admission Date: January 16, 2025 Nelida Christopher is a pleasant 39 yo F who was admitted with vertigo and head/neck "fullness". She reports minimal improvement. She continues to endorse soreness in her neck and head with inability to have FROM of her neck. She reports having right shoulder surgery back in October and things have been continued to worsen since that time. She reports having the Lidia maneuver before and states that it "does nothing," "it's not that type of vertigo." She denies cp or dyspnea. No focal weakness, numbness or tingling. Review of Systems 2 Review of Systems: All systems reviewed and are unremarkable except as noted in HPI and below. Denies fever, chills, fatigue, headache, sore throat, cough, chest pain, shortness of breath, palpitations, orthopnea, PND, abdominal pain, n/v/d, constipation, dysuria, hematuria, frequency, back pain, joint pain or swelling, easy bruising or bleeding, skin lesions or rashes. Physical Exam 2 Physical Exam: GENERAL: 39 yo obese middle aged WF. A&Ox4. No distress. EYES: EOMI w/o nystagmus LUNGS: Clear to auscultation bilaterally. No W/R/R. CARDIOVASCULAR: Regular rate and rhythm. No M/G/R. No JVD. NEUROLOGIC: No focal neurological deficits. CN II-XII grossly intact. Results & Data Results & Data Vital Signs (Past 12 Hours) Vital Signs Temp Pulse Resp BP Pulse Ox O2 Del Method 01/17/25 10:40 36.9 C 76 17 129/66 96 Room Air 01/17/25 10:00 37.5 C 77 17 148/81 H 98 Room Air 01/17/25 07:28 36.3 C L 69 18 129/77 96 Room Air Laboratory Results 01/17/25 07:37 01/17/25 07:37 PG Care Time/CCT Total # of Minutes Spent Total Time Spent with Patient: Total time spent is greater than 50% in coordination of care (as documented) at patient's floor/unit and/or counseling patient: 36 minutes Coding Level of Care Code 21739 SUB INP/OBS CARE 2/35MIN Diagnoses Vertigo R42 Myofascial neck pain M54.2 Anemia D64.9
[2025-01-17] MEDS: PROCHLORPERAZINE 5 MG in SYRINGE 4 ML IV ONE (11:54)
--- NOTE | 2025-01-17 12:04 | Electrocardiogram Report ---
Test Reason : Blood Pressure : */* mmHG Vent. Rate : 86 BPM Atrial Rate : 86 BPM P-R Int : 162 ms QRS Dur : 92 ms QT Int : 394 ms P-R-T Axes : 31 57 10 degrees QTcB Int : 471 ms Normal sinus rhythm T wave abnormality, consider inferior ischemia Abnormal ECG No previous ECGs available Confirmed by Garry Grant ([id number]) on 01/17/2025 12:04:23 PM Referred By: REFERRED SELF Confirmed By: Garry Grant
[2025-01-17] MEDS: METOCLOPRAMIDE HCL INJ 5 MG/ML 2 ML VIAL IV ONE (12:35)
[2025-01-17] MEDS: MECLIZINE HCL 25 MG TAB PO SCH (14:01)
[2025-01-17 15:44] VITALS: O2SAT 98
[2025-01-17] MEDS: diazePAM 5 MG TABLET PO SCH (21:59)
[2025-01-18 07:42] VITALS: BP 108/71; PULSE 65; RESP 16; TEMP 98.2
--- NOTE | 2025-01-18 10:01 | Discharge Summary ---
Date of Service January 18, 2025 Admission HPI Per Admitting Provider Candi Braswell is a 39-year-old female with longstanding history of cervicalgia, right-sided TMJ, persistent vertigo presenting with 2-1/2 weeks of progressive symptoms. She is mainly complaining of severe, extreme pressure in her neck and head as well as pressures in her ears (right > left), dizziness. She feels like she is going to faint when she changes position. She reports frequent right ear infections as well as feeling of aural fullness predominantly in her right ear and chronic right ear pain. also with chronic sinus congestion, dizziness and vertigo symptoms specifically with positional change. She denies hearing loss, tinnitus, dental pain No fever, chills, trauma or neck strain. Patient takes meclizine and Valium at home but states these medications make her sleepy and do not relieve her symptoms. Recently started on a prednisone taper as well of which she has 4 days left. Patient was previously diagnosed with Mnire's disease and was treated briefly with a diuretic but reports this did not help. She has also been on sertraline and Prozac in the past as well as antibiotics and reports these have not helped her symptoms either. She does get Botox injections for her TMJ which she does e xperience some relief with. She also follows with chiropractic medicine and reports relief with these methods as well. She is scheduled to see vestibular therapy in the future. Patient's family did send in a letter with additional information. To summarize: -Patient is unable to care for herself at home, can't lay flat due to ongoing pain and pressure in her head, neck and jaw. Has been unable to lay down or turn her neck for 2 years. Sleeps in a recliner -Missed her sinus CT scan scheduled for Monday -Has an LP scheduled for Monday, has never had an LP before -Newly found to be anemic with low iron - was prescribed PO supplementation but didn't work. Scheduled to see Hematology in January -Cannot swallow food or pills without it getting stuck In regards to her anemia. This is a fairly new diagnosis. She does report heavy periods sometimes getting 2 periods per month. She was trialed on oral iron replacement but reports this did not work. She is scheduled to see hematology in January. In the ER, patient afebrile, hemodynamically stable In significant discomfort [employer] Hospitalist Discharge diagnosis: Vertigo Neck fullness/tightness Discharge assessment: Vital Signs Temp Pulse Resp BP Pulse Ox O2 Del Method 01/18/25 07:41 36.8 C 65 16 108/71 98 Room Air 01/17/25 19:49 37.0 C 73 18 139/84 98 Room Air 01/17/25 15:20 36.7 C 67 16 142/80 H 98 Room Air 01/17/25 11:45 92 H 19 154/83 H 100 Room Air 01/17/25 11:05 36.7 C 74 17 138/82 97 Room Air 01/17/25 10:40 36.9 C 76 17 129/66 96 Room Air 01/17/25 10:00 37.5 C 77 17 148/81 H 98 Room Air GENERAL: 39 yo obese middle aged WF. A&Ox4. No distress. EYES: EOMI w/o nystagmus LUNGS: Clear to auscultation bilaterally. No W/R/R. CARDIOVASCULAR: Regular rate and rhythm. No M/G/R. No JVD. NEUROLOGIC: No focal neurological deficits. CN II-XII grossly intact. Discharge Data Consultations 01/16/25 18:29 ED Decision to Admit Stat Procedures Performed Chest X-Ray 01/16/25 13:42 XR chest 1V portable CLINICAL HISTORY: palpitations COMPARISON STUDY: None FINDINGS: Heart size and pulmonary vasculature are normal. No consolidation or pleural effusion. No pneumothorax. IMPRESSION: No acute findings. ACT 112: Negative or not required by law. Electronically signed by: Broderick Clark M.D. 01/16/2025 2:06 PM Head CTA 01/16/25 14:00 CT angio head wo/w CLINICAL HISTORY: [place], R sided COMPARISON STUDY: None FINDINGS: Noncontrast head CT: No intracranial hemorrhage seen. No mass effect, midline shift, or hydrocephalus. No skull fracture seen. There is mucosal thickening inferiorly in the maxillary sinuses. Visualized paranasal sinuses and mastoid air cells are otherwise clear. CTA: There is mild artifact distally at the left internal carotid artery. Distal internal carotid and vertebral arteries show no significant narrowing or occlusion. Basilar artery is patent. Anterior, middle, and posterior cerebral arteries are patent bilaterally. Cerebral venous sinuses opacify normally. No intracranial aneurysm seen. IMPRESSION: 1. No acute findings. 2. No arterial narrowing or occlusion seen at the brain. ACT 112: Negative or not required by law. Electronically signed by: Broderick Clark M.D. 01/16/2025 2:55 PM Neck CTA 01/16/25 14:00 CT angio neck with con CLINICAL HISTORY: 39 years-old Female with R sided BLACKWELL, dizzy. Acute headache with dizziness COMPARISON STUDY: CTA head of same day TECHNIQUE: Following the IV administration of 115 mL of Optiray, CT angiogram of the neck was performed from the aortic arch to the skull base. Images are reviewed in the axial, sagittal, and coronal planes. 3-D MIPS images are created and assessed. IV contrast was administered without complication. All measurements were calculated based on NASCET criteria. A dose lowering technique was utilized adhering to the principles of ALARA. FINDINGS: Three-vessel morphology of the thoracic aortic arch. The common and internal carotid arteries are widely patent. Vertebral arteries are codominant and widely patent. No aneurysm, dissection, high-grade stenosis or arterial occlusion. CTA head dictated separately. Polypoid mucosal thickening of the maxillary sinuses. Lung apices are clear. No acute fracture. IMPRESSION:Unremarkable CTA of the neck. ACT 112: Negative or not required by law. The above report was generated using voice recognition software. It may contain grammatical, syntax or spelling errors. Electronically signed by: Walter Benavides M.D. 01/16/2025 3:01 PM Chest CTA 01/16/25 16:03 Clinical history: Rule out pulmonary embolism Technique: Axial computed tomography images were obtained of the chest after the administration of intravenous contrast according to the CT angiogram protocol Findings: There is no definite sign of pulmonary embolism. There is mild subsegmental atelectasis in both lung bases. The lungs otherwise appear clear without infiltrate or mass. There is no pleural effusion or pneumothorax. There is no sign of pulmonary fibrosis or other diffuse interstitial process. No endobronchial lesion is seen There is no mediastinal, hilar, or axillary adenopathy. The thoracic aorta appears unremarkable with no sign of aneurysm or dissection. There is no pericardial effusion The visualized upper abdomen appears unremarkable. No fracture is seen. No focal osseous lesion is evident Impression: 1. No definite sign of pulmonary embolism 2. Mild bilateral lung base atelectasis Electronically signed by Lee Ceron 01-16-2025 5:03 PM Hospital Course (1) Vertigo: (2) Myofascial neck pain: (3) Anemia: Plan 39yo female with longstanding history of cervicalgia, right sided TMJ presenting with 2.5 weeks of progressive vertigo, fullness in neck, head and ears. No recent illness. Patient's exam findings are consistent with longstanding myofascial dysfunction - area is markedly tender but feels firm on exam, patient with very little cervical mobility - longstanding issue per note received from family. #Vertigo - longstanding history, worse over the last 2.5 weeks -Admit to medical -Meclizine 12.5mg po TID scheduled--> increase to 25mg TID -Valium 2mg po BID scheduled --> increase to 5mg BID -PT/OT evaluations appreciated --> await input -Patient would likely benefit from close followup with a DO physician that is comfortable in performing cervical and cranial techniques #Congestion -Pseudophed 30mg po q 6 hours PRN -Nasal saline QID PRN -Flonase daily #Neck pressure/pain -Valium 2mg po BID scheduled -Heat to the neck -PT/OT -Will complete patient's Prednisone taper -Protonix 40mg po daily -Patient should be encouraged to perform gentle stretching as tolerated. As above, would likely benefit from ongoing cervical/cranial OMT #Microcytic anemia - Hgb=11.2, MCV=65.9. Possibly secondary to heavy menstruation -Serum iron 21 and ferritin 7.1, ordered dose of Venofer 300mg IVx1 (couldn't complete whole bag d/t side effects) -She should keep her hematology followup appointment as scheduled #Morbid Obesity -Recommend dietary modifications and exercise to promote healthy weight loss Patient is medically and hemodynamically stable for discharge home. Discussed case with neurology regarding possible LP and he did not feel this was necessary as an inpatient at this time given symptomatology. She already has this arranged to be done as an outpatient through IR at [facility]. I encouraged her to keep this appointment as scheduled. She is to f/u with her PCP within 1 week or sooner if needed. Her PCP is a DO who can do OMT. Also will give a new script for PT. Plan d/w Dr. Stafford. Discharge time: 35 minutes Coding Level of Care Code 58993 INP/OBS DISCH >30 MIN Diagnoses Vertigo R42 Myofascial neck pain M54.2 Anemia D64.9
== END 2025-01-18 10:49 | disposition home or self-care (01) | DRG 149 ==
LOC: ED 13:34 → INTOOBSV 19:43 → SUATTDRO 19:43 → 3W 19:43